=== PATIENT | male | born 1940 | race Caucasian/White ===

== ENCOUNTER 2023-05-18 09:39 | Outpatient (AMB) | payer MEDICARE, OTHER, SELFPAY ==
--- NOTE | 2023-05-18 09:51 | HO.NEPHOV_ITS ---
HPI HPI Comments History of Present Illness Details I had the privilege of seeing Cedric in follow-up of his chronic kidney disease, hypertension and proteinuria. He is still grieving from his 's passing in December. He has not had any medication changes lately. His serum creatinine had been stable. He denies any chest pain, shortness of breath, palpitation, syncope, orthostatic symptoms, nausea, vomiting, diarrhea or urinary symptoms. He does not have any pedal edema. He is compliant with his medications. He avoids nonsteroidal anti-inflammatory medications. He tries to keep up with good hydration. He is followed closely by his primary care physician. [facility] Medical History (Updated 05/18/23 @ 13:10 by Raji Lauren MD) Cardiac pacemaker Hypertension Aortic stenosis Proteinuria Chronic kidney disease, stage 3a Social History Alcohol intake: never Patient Tobacco Use Status: Former Tobacco user Vital Signs 05/18/23 09:52 Height 5 ft 11 in Weight 140 lb 8 oz BMI 19.6 BP 120/50 L Blood Pressure Location Rt brachial Position Sitting Pulse 61 Pulse Source Pulse Oximeter Physical Exam Vital Signs: Last Vital Signs Pulse 61 05/18/23 09:52 BP 120/50 L 05/18/23 09:52 BMI result Body Mass Index 19.6 Const General: comfortable and no acute distress Orientation/consciousness: patient oriented x3 HEENT Head: Yes normocephalic Mouth: Normal oral and palatal mucosa present Eyes EOM: EOMs intact bilaterally Neck Neck: Yes supple Resp Auscultation: clear to auscultation bilaterally Cardio Jugular venous distension: no JVD Rate: regular rate GI Palpation (GI): Soft to palpation Auscultation: normal bowel sounds General: Yes no CVA tenderness Back/Spine/Pelvis Back: no CVA tenderness Skin General skin exam: no rashes or lesions noted Neuro General: patient oriented x3 and moves all extremities Extrem General: Yes no pedal edema Assessment & Plan Assessment & Plan (1) Hypertension: Code(s): I10 - Essential (primary) hypertension Qualifiers: Hypertension type: primary hypertension Qualified Code(s): I10 - Essential (primary) hypertension (2) Proteinuria: Code(s): R80.9 - Proteinuria, unspecified Qualifiers: Proteinuria type: other Qualified Code(s): R80.8 - Other proteinuria (3) Chronic kidney disease, stage 3a: Code(s): N18.31 - Chronic kidney disease, stage 3a Jerome Steele has stage III CKD most likely from vascular disease and age-related loss of renal function. He had history of aortic stenosis and might have been having a low-flow state. His renal functions have been stable. His blood pressure is at goal. He is not on any ALTAGRACIA-inhibitor. He has no orthostatic symptoms. He avoids excess sodium in the diet and keeps up with good hydration. He does not take any nonsteroidal anti-inflammatory medications. No medication refills requested today. I did not make any medication changes today. All his questions and concerns were addressed. Time spent retrieving data, patient encounter and documentation 23 minutes. Follow-up given. Orders: Orders Protein Creatinine Ratio, Ur Today I10 - Essential (primary) hypertension, N18.31 - Chronic kidney disease, stage 3a, R80.9 - Proteinuria, unspecified Electrolytes Today I10 - Essential (primary) hypertension, N18.31 - Chronic kidney disease, stage 3a, R80.9 - Proteinuria, unspecified Blood Urea Nitrogen Today I10 - Essential (primary) hypertension, N18.31 - Chronic kidney disease, stage 3a, R80.9 - Proteinuria, unspecified Creatinine Today I10 - Essential (primary) hypertension, N18.31 - Chronic kidney disease, stage 3a, R80.9 - Proteinuria, unspecified Coding Level of Care Code Est Pt Level 3 (07019) Diagnoses Primary hypertension I10 Hypertension type: primary hypertension Other proteinuria R80.8 Proteinuria type: other Chronic kidney disease, stage 3a N18.31 Results Reviewed Nephrology Results: No Data to Display
[2023-05-18 09:52] VITALS: BP 120/50; PULSE 61; BMI 19.6
== END 2023-05-18 10:34 | disposition home or self-care (01) ==
PROVIDERS: PCP Internal Medicine; Visit Provider Internal Medicine Nephrology
DX: I10 Essential (primary) hypertension (principal); R80.8 Other proteinuria; N18.31 Chronic kidney disease, stage 3a
CPT/HCPCS: 99213

== ENCOUNTER → 2023-05-18 09:39 | Outpatient (BNVA) | payer OTHER, MEDICARE, SELFPAY | PROVIDERS: PCP Internal Medicine; Visit Provider Internal Medicine Nephrology ==

== ENCOUNTER 2023-09-22 09:02 | Outpatient (AMB) | payer MEDICARE, OTHER, SELFPAY ==
[2023-09-22 09:29] VITALS: BP 110/50; PULSE 60; O2SAT 96; BMI 19.3
--- NOTE | 2023-09-22 09:29 | HO.NEPHOV ---
HPI HPI Comments History of Present Illness Details I had the privilege of seeing Cedric in follow-up of his chronic kidney disease, hypertension and proteinuria. He is still grieving from his 's passing . He has not had any medication changes lately. His serum creatinine had been stable. He denies any chest pain, shortness of breath, palpitation, syncope, orthostatic symptoms, nausea, vomiting, diarrhea or urinary symptoms. He does not have any pedal edema. He is compliant with his medications. He avoids nonsteroidal anti-inflammatory medications. He tries to keep up with good hydration. He had been having edema and his Amlodipine has been reduced . He has been initiated on diuretics. He had an USS of his left leg to r/o DVT. He is followed closely by his primary care physician. [facility] Medical History (Updated 05/18/23 @ 13:10 by Raji Lauren MD) Cardiac pacemaker Hypertension Aortic stenosis Proteinuria Chronic kidney disease, stage 3a Social History Alcohol intake: never Patient Tobacco Use Status: Former Tobacco user Vital Signs 09/22/23 09:29 Height 5 ft 11 in Weight 138 lb 6 oz BMI 19.3 BP 110/50 L Blood Pressure Location Lt brachial Position Sitting Pulse 60 Pulse Source Pulse Oximeter Pulse Oximetry (%) 96 Oxygen Delivery Method Room Air Physical Exam Vital Signs: Last Vital Signs Pulse 60 09/22/23 09:29 BP 110/50 L 09/22/23 09:29 Pulse Ox 96 09/22/23 09:29 Oxygen Delivery Method Room Air 09/22/23 09:29 BMI result Body Mass Index 19.3 Const General: comfortable and no acute distress Orientation/consciousness: patient oriented x3 HEENT Head: Yes normocephalic Mouth: Normal oral and palatal mucosa present Eyes EOM: EOMs intact bilaterally Neck Neck: Yes supple Resp Auscultation: clear to auscultation bilaterally Cardio Jugular venous distension: no JVD Rate: regular rate GI Palpation (GI): Soft to palpation Auscultation: normal bowel sounds General: Yes no CVA tenderness Back/Spine/Pelvis Back: no CVA tenderness Skin General skin exam: no rashes or lesions noted Neuro General: patient oriented x3 and moves all extremities Extrem General: Yes edema Assessment & Plan Assessment & Plan (1) Chronic kidney disease, stage 3a: Code(s): N18.31 - Chronic kidney disease, stage 3a (2) Proteinuria: Code(s): R80.9 - Proteinuria, unspecified Qualifiers: Proteinuria type: other Qualified Code(s): R80.8 - Other proteinuria (3) Hypertension: Code(s): I10 - Essential (primary) hypertension Qualifiers: Hypertension type: primary hypertension Qualified Code(s): I10 - Essential (primary) hypertension Jerome Steele has stage III CKD most likely from vascular disease and age-related loss of renal function. He had history of aortic stenosis and might have been having a low-flow state. His renal functions have been stable. His blood pressure is at goal. He is not on any ALTAGRACIA-inhibitor. He has no orthostatic symptoms. He avoids excess sodium in the diet and keeps up with good hydration. He has some edema likely from Amlodipine and the dose has been reduced. He does not take any nonsteroidal anti-inflammatory medications. No medication refills requested today. I did not make any medication changes today. All his questions and concerns were addressed. Orders: Orders Blood Urea Nitrogen Today I10 - Essential (primary) hypertension, N18.31 - Chronic kidney disease, stage 3a, R80.8 - Other proteinuria Electrolytes Today I10 - Essential (primary) hypertension, N18.31 - Chronic kidney disease, stage 3a, R80.8 - Other proteinuria Creatinine Today I10 - Essential (primary) hypertension, N18.31 - Chronic kidney disease, stage 3a, R80.8 - Other proteinuria Coding Level of Care Code Est Pt Level 4 (40004) Diagnoses Chronic kidney disease, stage 3a N18.31 Other proteinuria R80.8 Proteinuria type: other Primary hypertension I10 Hypertension type: primary hypertension Results Reviewed Nephrology Results: No Data to Display
== END 2023-09-22 09:54 | disposition home or self-care (01) ==
PROVIDERS: PCP Internal Medicine; Visit Provider Internal Medicine Nephrology
DX: N18.31 Chronic kidney disease, stage 3a (principal); R80.8 Other proteinuria; I10 Essential (primary) hypertension
CPT/HCPCS: 99214

== ENCOUNTER → 2023-09-22 09:02 | Outpatient (BNVA) | payer OTHER, MEDICARE, SELFPAY | PROVIDERS: PCP Internal Medicine; Visit Provider Internal Medicine Nephrology ==

== ENCOUNTER 2024-03-24 09:31 | Outpatient (AMB) | payer MEDICARE, OTHER, SELFPAY ==
--- NOTE | 2024-03-24 09:33 | HO.NEPHOV_ITS ---
Vital Signs 03/24/24 09:37 Height 5 ft 11 in Weight 136 lb 4 oz BMI 19.0 BP 120/60 Blood Pressure Location Lt brachial Position Sitting Pulse 60 Pulse Source Pulse Oximeter Pulse Oximetry (%) 96 Oxygen Delivery Method Room Air Intake Visit Reasons: 6 Month F/U- Conf Application Penetration Tester Required: No Accompanied by: Self / Same As Patient Allergies No Known Allergies Allergy (Verified 03/24/24 09:39) HPI Comments Details: Cedric was seen in follow-up of his chronic kidney disease, hypertension and proteinuria. He has not had any medication changes lately. His serum creatinine had been stable. He denies any chest pain, shortness of breath, palpitation, syncope, orthostatic symptoms, nausea, vomiting, diarrhea or urinary symptoms. He does not have any pedal edema. He is compliant with his medications. He avoids nonsteroidal anti-inflammatory medications. He tries to keep up with good hydration. He had been having edema and his Amlodipine has been reduced & had been on diuretics. He is followed closely by his primary care physician. [facility] Medical History (Updated 05/18/23 @ 13:10 by Raji Lauren MD) Cardiac pacemaker Hypertension Aortic stenosis Proteinuria Chronic kidney disease, stage 3a Social History Alcohol intake: never Patient Tobacco Use Status: Former Tobacco user Review of Systems Const All systems reviewed & are unremarkable except as noted in HPI and below Physical Exam Vital Signs: Last Vital Signs Pulse 60 03/24/24 09:37 BP 120/60 03/24/24 09:37 Pulse Ox 96 03/24/24 09:37 Oxygen Delivery Method Room Air 03/24/24 09:37 BMI result Body Mass Index 19.0 Const General: comfortable and no acute distress Orientation/consciousness: patient oriented x3 HEENT Head: Yes normocephalic Mouth: Normal oral and palatal mucosa present Eyes EOM: EOMs intact bilaterally Neck Neck: Yes supple Resp Auscultation: clear to auscultation bilaterally Cardio Jugular venous distension: no JVD Rate: regular rate GI Palpation (GI): Soft to palpation Auscultation: normal bowel sounds General: Yes no CVA tenderness Back/Spine/Pelvis Back: no CVA tenderness Skin General skin exam: no rashes or lesions noted Neuro General: patient oriented x3 and moves all extremities Extrem General: Yes no pedal edema Results Reviewed Nephrology Results: No Data to Display Assessment & Plan Assessment & Plan (1) Chronic kidney disease, stage 3a: Code(s): N18.31 - Chronic kidney disease, stage 3a Category: Medical (2) Proteinuria: Code(s): R80.9 - Proteinuria, unspecified Category: Medical Qualifiers: Proteinuria type: other Qualified Code(s): R80.8 - Other proteinuria (3) Hypertension: Code(s): I10 - Essential (primary) hypertension Category: Medical Qualifiers: Hypertension type: primary hypertension Qualified Code(s): I10 - Essential (primary) hypertension Plan Cedric has stage III CKD most likely from vascular disease and age-related loss of renal function. He had history of aortic stenosis and might have been having a low-flow state. His renal functions had been stable. His blood pressure is a t goal. He is not on any ALTAGRACIA-inhibitor. He has no orthostatic symptoms. He avoids excess sodium in the diet and keeps up with good hydration. He has some edema likely from Amlodipine and the dose has been reduced. He does not take any nonsteroidal anti-inflammatory medications. I did not make any medication changes today. All his questions and concerns were addressed Orders: Orders Blood Urea Nitrogen 6 Months I10 - Essential (primary) hypertension, N18.31 - Chronic kidney disease, stage 3a, R80.8 - Other proteinuria Vitamin D 25-OH Total 6 Months I10 - Essential (primary) hypertension, N18.31 - Chronic kidney disease, stage 3a, R80.8 - Other proteinuria Creatinine 6 Months I10 - Essential (primary) hypertension, N18.31 - Chronic kidney disease, stage 3a, R80.8 - Other proteinuria Electrolytes 6 Months I10 - Essential (primary) hypertension, N18.31 - Chronic kidney disease, stage 3a, R80.8 - Other proteinuria Parathyroid Hormone Intact 6 Months I10 - Essential (primary) hypertension, N18.31 - Chronic kidney disease, stage 3a, R80.8 - Other proteinuria Coding Level of Care Code Est Pt Level 4 (20828) Diagnoses Chronic kidney disease, stage 3a N18.31 Other proteinuria R80.8 Proteinuria type: other Primary hypertension I10 Hypertension type: primary hypertension
[2024-03-24 09:37] VITALS: BP 120/60; PULSE 60; O2SAT 96; BMI 19.0
== END 2024-03-24 10:00 | disposition home or self-care (01) ==
PROVIDERS: PCP Internal Medicine; Visit Provider Internal Medicine Nephrology
DX: N18.31 Chronic kidney disease, stage 3a (principal); R80.8 Other proteinuria; I10 Essential (primary) hypertension
CPT/HCPCS: 99214

== ENCOUNTER → 2024-03-24 09:31 | Outpatient (BNVA) | payer OTHER, MEDICARE, SELFPAY | PROVIDERS: PCP Internal Medicine; Visit Provider Internal Medicine Nephrology ==

== ENCOUNTER 2024-09-15 10:07 | Outpatient (REF) | payer MEDICARE, OTHER, SELFPAY ==
--- OUTSIDE RECORDS SUMMARY | 2024-09-15 11:51 | XMS_ITS | Clinical Summary ---
Author Organization [address] [place] [address] [place] [phone] Phone Care Team Providers Care Design Drafter Name Role Phone Brain Mcgarry MD Primary Care Provider [phone] Allergies No known active allergies Medications amLODIPine (NORVASC) 2.5 mg tablet Take 1 Tablet by mouth daily. Active cyanocobalamin (VITAMIN B-12) 1,000 mcg tablet Take 1,000 mcg by mouth daily. Active finasteride (PROSCAR) 5 mg tablet Take 5 mg by mouth daily. Active fluticasone furoate-vilante roL (BREO ELLIPTA) 100-25 mcg/dose inhaler Inhale into the lungs. Active furosemide (LASIX) 20 mg tablet Take 20 mg by mouth daily. Active magnesium aspart,citrate, oxide (Triple Magnesium Complex) 400 mg magnesium capsule Take 1 Capsule by mouth 2 times daily. 12/26/2021 Active potassium chloride 20 mEq tablet extended release Take 20 mEq by mouth daily. Active levothyroxine (SYNTHROID, LEVOTHROID) 50 mcg tablet Take 1 tablet (50 mcg total) by mouth 1 (one) time each day before breakfast. Active carvediloL (COREG) 25 mg tablet Take by mouth 2 (two) times a day with meals. Active fluvastatin (LESCOL) 20 mg capsule Take 1 capsule (20 mg total) by mouth at bedtime. Active Active Problems Problem Noted Date Diagnosed Date Cardiac pacemaker in situ 06/16/2024 Assessment & Plan (06/16/2024 8:48 PM EST): History of syncope 06/16/2024 Assessment & Plan (06/16/2024 8:48 PM EST): Primary hypertension 06/16/2024 Assessment & Plan (06/16/2024 8:48 PM EST): Blood pressure is favorable on current medical therapy; continue amlodipine, carvedilol, and furosemide. No recent metabolic panel on file; we will update this today. Orders: Basic metabolic panel; Future Magnesium; Future Mild tricuspid regurgitation 06/16/2024 Assessment & Plan (06/16/2024 8:48 PM EST): As above. Orders: Transthoracic echocardiogram (TTE) complete with PRN contrast, bubble, strain, and 3D order panel; Future Bifascicular block 06/16/2024 Assessment & Plan (06/16/2024 8:48 PM EST): Stable from previous. Stage 3a chronic kidney disease (CMS/HCC V24, CM S/HCC V28) 06/16/2024 Peripheral edema 06/16/2024 Assessment & Plan (06/16/2024 8:48 PM EST): As above, peripheral edema has become a new issue over the last 1 year. It is very mild on exam today and he is already taking furosemide 20 mg daily. I have strongly encouraged him to continue with conservative measures including low-sodium diet and elevation as able; he is not consistently wearing compression stockings which I did encourage him to do today. Should send him's persist or continue to worsen despite conservative measures, we will consider increasing furosemide. We will obtain echocardiogram today to reevaluate for any underlying heart failure. Orders: Transthoracic echocardiogram (TTE) complete with PRN contrast, bubble, strain, and 3D order panel; Future Hyperlipidemia 05/15/2021 Overview (06/14/2024): Last Assessment & Plan: Last lipid panel 06/29 total cholesterol 136, HDL 72, LDL 53. Continue statin. Assessment & Plan (06/16/2024 8:48 PM EST): Continue fluvastatin. 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 We reviewed signs and symptoms of worsening aortic stenosis and when to be concerned to call our office. He has no symptoms currently. We will continue to monitor. Assessment & Plan (06/16/2024 8:48 PM EST): Overall, the patient presents today without any significant worrisome symptoms; he does have some mild lower extremity edema but no other symptoms concerning for overt heart failure that may be resultant from his underlying valvular disease. We will update an echocardiogram for reevaluation of this and continue to readdress this as needed. Worrisome signs or symptoms for which she should return to care or seek emergent medical attention were reviewed and he verbalizes understanding. Orders: ECG 12 lead Transthoracic echocardiogram (TTE) complete with PRN contrast, bubble, strain, and 3D order panel; Future Sinoatrial node dysfunction (CMS/HCC V24, CMS/ C V28) 11/12/2020 Overview (06/14/2024): Last Assessment & Plan: Device check stable from December 2020. Assessment & Plan (06/16/2024 8:48 PM EST): Status post pacemaker placement; no recurrent syncope since. Continue with in office and remote device checks as per device clinic protocol. Encounters Date Type Department Care Team Description 09/09/2024 3:50 PM EDT Ancillary Procedure [facility] [address] [place] [address] 09/01/2024 7:42 AM EDT - 09/01/2024 11:59 PM EDT Hospital Encounter [facility] [address] [place] [id number] Hypoxemia; Emphysema lung (CMS/HCC V24, CMS/HCC V28) Discharge Disposition: Home or Self Care 07/07/2024 2:25 PM EST Ancillary Procedure [facility] [address] [facility] [address] [place] [address] from Last 3 Months Family History Medical History Relation Name Comments Heart failure Father Relation Name Status Comments Father Social History Tobacco Use Types Packs/Day Years Used Date Smoking Tobacco: Former Smokeless Tobacco: Never Alcohol Use Standard Drinks/Week Comments Yes 0 (1 standard drink = 0.6 oz pur e alcohol) Sex and Gender Information Value Date Recorded Sex Assigned at Not on file Legal Sex Male 3:53 PM EST Gender Identity Not on file Sexual Orientation Not on file Obstetrics History Last Filed Vital Signs Vital Sign Reading Time Taken Comments Blood Pressure 125/60 06/16/2024 10:28 AM EST Pulse 60 06/16/2024 10:28 AM EST Temperature - - Respiratory Rate - - Oxygen Saturation 93% 06/16/2024 10:28 AM EST Inhaled Oxygen Concentration - - Weight 63.5 kg (140 lb) 06/16/2024 10:28 AM EST Height 180.3 cm (5' 11 ) 06/16/2024 10:28 AM EST Body Mass Index 19.53 06/16/2024 10:28 AM EST Plan of Treatment Upcoming Encounters Date Type Department Care Team (Late st Contact Info) Description 12/26/2024 9:30 AM EDT Ancillary Procedure [facility] [address] [facility] [address] [place] [address] Health Maintenance Due Date Last Done Comments DTaP,Tdap,and Td Vaccines (1 - Tdap) 1959 Pneumococcal Vaccine: 50+ Years (2 of 2 - PPSV23) 09/21/2014 07/27/2014 Depression Screening 05/17/2022 Falls Risk Assessment 05/17/2022 Medicare Annual Wellness Visit 05/17/2022 Social Influencers of Health Screening 05/17/2022 Hypertension/CHF/CAD Annual BMP Blood Test 06/16/2024 12/25/2021 Cholesterol Screening (Lipid Panel) 12/25/2026 12/25/2021 RSV Immunization Adult Patients Completed 04/16/2023 Zoster Vaccines Completed 10/09/2023, 07/10, 08/20/2012 COVID-19 Vaccine Completed 02/29/2024, 02/2023, 03/16/2022, Additional history exists Influenza Vaccine Completed 03/07/2024, , 03/11/2022, Additional history exists HIB Vaccines Aged Out No longer eligi ble based on patient's age to complete this topic HPV Vaccines Aged Out No longer eligi ble based on patient's age to complete this topic Hepatitis A Vaccines Aged Out No long er eligible based on patient's age to complete this topic Hepatitis B Vaccines Aged Out No long er eligible based on patient's age to complete this topic IPV Vaccines Aged Out No longer eligi ble based on patient's age to complete this topic MMR Vaccines Aged Out No longer eligi ble based on patient's age to complete this topic Meningococcal ACWY Vaccine Aged Out N o longer eligible based on patient's age to complete this topic Meningococcal B Vaccine Aged Out No l onger eligible based on patient's age to complete this topic RSV Immunization Patients Under 20 months Aged Out No longer eligible based on patient's age to complete this topic Varicella Vaccines Aged Out No longer eligible based on patient's age to complete this topic Medical Devices Implanted Type Area Form Grader Device Identifier Shelf Expiration Date Model / Serial / Lot [facility] 2272 Assurity Mri(Tm) [id number] Implanted: (Quantity not on file) Cardiac Pacemaker [employer]- [employer] 2272 ASSURITY MRI(TM) / [id number] / Procedures Procedure Name Priority Date/Time Associated Diagnosis Comments CARDIAC DEVICE CHECK- REMOTE- MURJ Routine 09/09/2024 3:47 PM EDT HC SPIROMETRY BRONCHODILATION RESPONSIVENESS PRE/POST BRONCHODILATOR ADMINISTRATION Routine 09/01/2024 9:08 AM EDT Hypoxemia Emphysema lung (CMS/HCC V24, CMS/HCC V28) CARDIAC DEVICE CHECK- REMOTE- MURJ Routine 07/07/2024 2:24 PM EST ANNUAL BMP BLOOD TEST Routine 12/25/2021 LIPID PANEL Routine 12/25/2021 from Last 3 Months or Most Recently Relevant to Health Maintenance Results * Cardiac device check - Remote- MURJ (09/09/2024 3:47 PM EDT) Only the most recent of2 resultswithin the time period is included. Date Time Interrogation Session [id number] CV DEVICE CHECK Type Interrogation Session Remote Scheduled CV DEVICE CHECK Implantable Pulse Generator Form Grader [employer] CV DEVICE CHECK Implantable Pulse Generator Type IPG CV DEVICE CHECK Implantable Pulse Generator Model 2272 Assurity MRI(TM) CV DEVICE CHECK Implantable Pulse Generator Serial Number [id number] CV DEVICE CHECK Implantable Pulse Generator Implant Date [id number] CV DEVICE CHECK Battery Remaining Percentage 46.00 CV DEVICE CHECK Battery Remaining Longevity 53.0 CV DEVICE CHECK Battery Voltage 2.960 CV D EVICE CHECK Battery SENIOR FIELD SERVICE ENGINEER Trigger 2.600 CV DEVICE CHECK Battery Status Middle of Service CV DEVICE CHECK Shemar Statistic RA Percent Paced 78.00 CV DEVICE CHECK Shemar Statistic RV Percent Paced 9.20 CV DEVICE CHECK Atrial Tachy Statistic AT/AF [place]ee Percent 0.00 CV DEVICE CHECK Lead Channel Sensing Intrinsic Amplitude 2.100 CV DEVICE CHECK Lead Channel Setting Sensing Sensitivity 0.50 CV DEVICE CHECK Lead Channel Impedance Value 360 CV DEVICE CHECK Lead Channel Pacing Threshold Amplitude 0.875 CV DEVICE CHECK Lead Channel Pacing Threshold Pulse Width 0.5 CV DEVICE CHECK Lead Channel RA Pacing Threshold Date 2024-03-25 CV DEVICE CHECK Lead Channel Setting Pacing Amplitude 1.875 CV DEVICE CHECK Lead Channel Setting Pacing Pulse Width 0.5 CV DEVICE CHECK Lead Channel Sensing Intrinsic Amplitude 9.100 CV DEVICE CHECK Lead Channel Setting Sensing Sensitivity 2.00 CV DEVICE CHECK Lead Channel Impedance Value 410 CV DEVICE CHECK Lead Channel Pacing Threshold Amplitude 1.000 CV DEVICE CHECK Lead Channel Pacing Threshold Pulse Width 0.5 CV DEVICE CHECK Lead Channel RV Pacing Threshold Date 2024-03-25 CV DEVICE CHECK Lead Channel Setting Pacing Amplitude 1.250 CV DEVICE CHECK Lead Channel Setting Pacing Pulse Width 0.5 CV DEVICE CHECK Shemar Setting Mode (NBG Code) DDDR CV DEVICE CHECK Shemar Setting Lower Rate Limit 60 CV DEVICE CHECK Shemar Setting AT Mode Switch Rate 180 CV DEVICE CHECK Shemar Setting Maximum Tracking Rate 130 CV DEVICE CHECK Shemar Setting Maximum Sensor Rate 130 CV DEVICE CHECK Shemar Setting PAV Delay 180 CV DEVICE CHECK Shemar Setting LY Delay 150 CV DEVICE CHECK Date of Service 2024-04-01 CV DEVICE CHECK Anatomical Region Laterality Modality Device Interroga tion 03/25/2024 10:2 1 AM EDT Impressions 04/01/2024 8:12 AM EDT Normal Remote: No Events * Normal Device Function * Alerts or events: None * Battery: Battery is at 46%, 4.42 yrs * Sensing, impedance and thresholds reviewed * Programmed parameters reviewed * Presenting rhythm reviewed * Heart Rate Histograms reviewed * No significant changes noted Narrative Procedure Note Azael Girard MD - 09/09/2024 IMPRESSION: Normal Remote: No Events * Normal Device Function * Alerts or events: None * Battery: Battery is at 46%, 4.42 yrs * Sensing, impedance and thresholds reviewed * Programmed parameters reviewed * Presenting rhythm reviewed * Heart Rate Histograms reviewed * No significant changes noted Azael Girard MD CV IMPLANTABLE CARDIAC DEVICE PROCEDURES Final Result * Pulmonary function testing: Carbon Monoxide Diffusing Capacity, Nitrogen Wash Out, Spirometry with Bronchodilator, Pulmonary Stress Test, 6 min walk (09/01/2024 9:08 AM EDT) Narrative Mariam Christiansen MD - 09/01/2024 5:49 PM EDT FEV1/FVC 43%. FEV1 1.60 at 61% with Z-score -1.93. FVC 104%. No bronchodilator response. TLC 84% (adjusted 82%). DLCO 28% (adjusted 34%) w/ Z-score of -5.31. Moderate obstruction. ??No restriction. ??Severe decrease in diffusion. 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 Result [facility] Essence Hughes MD PFT ORDERABLES Final Result * Annual BMP Blood Test (12/25/2021) [facility] Annual BMP Blood Test Abstracted Result [facility] Oleg Santos MD HEALTH MAINTENANCE Final Result * Lipid panel (12/25/2021) [facility] LDL/HDL Ratio 2 0 - 4 Triglycerides 72 0 - 150 mg/dL Cholesterol 126 0 - 200 mg/dL HDL 64 >=40 mg/dL LDL Cholesterol 48 0 - 100 mg/dL Blood Venous blood specimen / Unknown Historical Provider LAB BLOOD ORDERABLES Sobia l Result from Last 3 Months or Most Recently Relevant to Health Maintenance Insurance MEDICARE [facility] Advance Directives Documents on File Type Date Recorded Patient Cyber Software Engineer Expl anation Health Care Decision (hx) 10/12/2019 AD ROMERO DIRECTIVE Health Care Decision (hx) 10/12/2019 AD ROMERO DIRECTIVE Health Care Decision (hx) 10/12/2019 AD ROMERO DIRECTIVE Health Care Decision (hx) 10/12/2019 AD ROMERO DIRECTIVE Health Care Decision (hx) 10/12/2019 AD ROMEOR DIRECTIVE Health Care Decision (hx) 10/12/2019 AD ROMERO DIRECTIVE Health Care Decision (hx) 10/12/2019 AD ROMERO DIRECTIVE Health Care Decision (hx) 10/12/2019 AD ROMERO DIRECTIVE Health Care Decision (hx) 10/12/2019 AD ROMERO DIRECTIVE Health Care Decision (hx) 10/12/2019 AD ROMERO DIRECTIVE Health Care Decision (hx) 10/12/2019 AD ROMERO DIRECTIVE Health Care Decision (hx) 10/12/2019 AD ROMERO DIRECTIVE Health Care Decision (hx) 10/12/2019 AD ROMERO DIRECTIVE Health Care Decision (hx) 10/12/2019 AD ROMERO DIRECTIVE Health Care Decision (hx) 10/12/2019 AD ROMERO DIRECTIVE Care Teams Design Drafter Relationship Specialty Start Date End Date Brain Mcgarry MD [address] [place] [address] PCP - General Internal Medicine 08/30/24
[2024-09-15 18:12] LABS: Anion Gap 12 (12-20); Blood Urea Nitrogen 17 mg/dL (9-16); Carbon Dioxide 25 mmol/L (22-29); Chloride 108 mmol/L (96-108); Estimated Glomerular Filt Rate 57; Sodium 141 mmol/L (135-145)
[2024-09-15 18:28] LABS: Parathyroid Hormone Intact 242.4 pg/mL (8.7-77.1); Vitamin D 25-OH Total 15.9 ng/mL (>30)
== END 2024-09-15 10:08 | disposition home or self-care (01) ==
LOC: HO.HKASLDS 10:07
PROVIDERS: Visit Provider Internal Medicine Nephrology
DX: N18.31 Chronic kidney disease, stage 3a (principal); R80.8 Other proteinuria; I10 Essential (primary) hypertension
CPT/HCPCS: 36415; 80051; 82306; 82565; 83970; 84520

== ENCOUNTER 2024-09-22 09:31 | Outpatient (AMB) | payer OTHER, MEDICARE, SELFPAY ==
--- NOTE | 2024-09-22 09:39 | HO.NEPHOV_ITS ---
Vital Signs 09/22/24 09:43 Height 5 ft 11 in Weight 140 lb 4 oz BMI 19.6 BP 132/60 Blood Pressure Location Lt brachial Position Sitting Pulse 59 Pulse Source Pulse Oximeter Intake Visit Reasons: 6mon follow up-Conf Staff Nuclear Weapons Officer Required: No Accompanied by: Self / Same As Patient Allergies No Known Allergies Allergy (Verified 09/22/24 09:41) HPI Comments Details: Cedric was seen in follow-up of his chronic kidney disease, hypertension and proteinuria.His serum creatinine had been stable. He denies any chest pain, palpitation, syncope, orthostatic symptoms, nausea, vomiting, diarrhea or urinary symptoms. He has SOBE and feels his is getting worse and may need AVR soon. He has some pedal edema. He is compliant with his medications. He avoids nonsteroidal anti-inflammatory medications. He tries to keep up with good hydration. He had been having edema and his Amlodipine has been reduced & had been on diuretics. He is followed closely by his primary care physician. [facility] Medical History (Updated 09/22/24 @ 10:12 by Raji Lauren MD) Cardiac pacemaker Hypertension Aortic stenosis Proteinuria Chronic kidney disease, stage 3a Social History Alcohol intake: never Patient Tobacco Use Status: Former Tobacco user Review of Systems Const All systems reviewed & are unremarkable except as noted in HPI and below Physical Exam Vital Signs: Last Vital Signs Pulse 59 09/22/24 09:43 BP 132/60 09/22/24 09:43 BMI result Body Mass Index 19.6 Const General: comfortable and no acute distress Orientation/consciousness: patient oriented x3 HEENT Head: Yes normocephalic Mouth: Normal oral and palatal mucosa present Eyes EOM: EOMs intact bilaterally Neck Neck: Yes supple Resp Auscultation: clear to auscultation bilaterally Cardio Jugular venous distension: no JVD Rate: regular rate Heart sounds: Murmur heart sound present GI Palpation (GI): Soft to palpation Auscultation: normal bowel sounds General: Yes no CVA tenderness Back/Spine/Pelvis Back: no CVA tenderness Skin General skin exam: no rashes or lesions noted Neuro General: patient oriented x3 and moves all extremities Extrem General: Yes edema Results Reviewed Nephrology Results: Sodium 141 mmol/L (135-145) 04/10/25 Potassium 4.0 mmol/L (3.3-5.1) 09/15/24 Chloride 108 mmol/L (96-108) 09/15/24 Carbon Dioxide 25 mmol/L (22-29) 09/15/24 BUN 17 mg/dL (9-16) H 09/15/24 Creatinine 1.21 mg/dL (0.5-1.4) 09/15/24 PTH Intact 242.4 pg/mL (8.7-77.1) H 09/15/24 Assessment & Plan Assessment & Plan (1) Chronic kidney disease, stage 3a: Code(s): N18.31 - Chronic kidney disease, stage 3a Category: Medical (2) Proteinuria: Code(s): R80.9 - Proteinuria, unspecified Category: Medical Qualifiers: Proteinuria type: other Qualified Code(s): R80.8 - Other proteinuria (3) Hypertension: Code(s): I10 - Essential (primary) hypertension Category: Medical Qualifiers: Hypertension type: primary hypertension Qualified Code(s): I10 - Essential (primary) hypertension (4) Secondary hyperparathyroidism (of renal origin): Code(s): N25.81 - Secondary hyperparathyroidism of renal origin Category: Medical Plan Cedric has stage III CKD most likely from vascular disease and age-related loss of renal function. He had history of aortic stenosis and might have been having a low-flow state. His renal functions had been stable. His blood pressure is at goal. He is not on any ALTAGRACIA-inhibitor. He has no orthostatic symptoms. He needs an ECHO soon to look at the AV to explore the timing of TAVR. He avoids excess sodium in the diet and keeps up with good hydration. He has some edema likely from Amlodipine and the dose has been reduced. ( needs an ECHO to look at the AV). He does not take any nonsteroidal anti-inflammatory medications. I started him on Vitamin D today. He may need activated vitamin D soon. I did not make any medication changes today. All his questions and concerns were addressed Orders: Orders Vitamin D 25-OH Total 6 Months I10 - Essential (primary) hypertension, N18.31 - Chronic kidney disease, stage 3a, N25.81 - Secondary hyperparathyroidism of renal origin, R80.8 - Other proteinuria Parathyroid Hormone Intact 6 Months I10 - Essential (primary) hypertension, N18.31 - Chronic kidney disease, stage 3a, N25.81 - Secondary hyperparathyroidism of renal origin, R80.8 - Other proteinuria Creatinine 6 Months I10 - Essential (primary) hypertension, N18.31 - Chronic kidney disease, stage 3a, N25.81 - Secondary hyperparathyroidism of renal origin, R80.8 - Other proteinuria Blood Urea Nitrogen 6 Months I10 - Essential (primary) hypertension, N18.31 - Chronic kidney disease, stage 3a, N25.81 - Secondary hyperparathyroidism of renal origin, R80.8 - Other proteinuria Phosphorus 6 Months I10 - Essential (primary) hypertension, N18.31 - Chronic kidney disease, stage 3a, N25.81 - Secondary hyperparathyroidism of renal origin, R80.8 - Other proteinuria Electrolytes 6 Months I10 - Essential (primary) hypertension, N18.31 - Chronic kidney disease, stage 3a, N25.81 - Secondary hyperparathyroidism of renal origin, R80.8 - Other proteinuria Calcium 6 Months I10 - Essential (primary) hypertension, N18.31 - Chronic kidney disease, stage 3a, N25.81 - Secondary hyperparathyroidism of renal origin, R80.8 - Other proteinuria Medications: New cholecalciferol (vitamin D3) 50 mcg PO DAILY 90 caps 3RF Coding Level of Care Code Est Pt Level 4 (76245) Diagnoses Chronic kidney disease, stage 3a N18.31 Other proteinuria R80.8 Proteinuria type: other Primary hypertension I10 Hypertension type: primary hypertension Secondary hyperparathyroidism (of renal origin) N25.81
[2024-09-22 09:43] VITALS: BP 132/60; PULSE 59; BMI 19.6
--- OUTSIDE RECORDS SUMMARY | 2024-09-22 10:53 | XMS_ITS | Clinical Summary ---
Author Organization [facility] Address [address] [address] Phone Care Team Providers Care College Football Coach Name Role Phone Brain Mcgarry MD Primary Care Provider [phone] Allergies No known active allergies Medications finasteride (PROSCAR) 5 MG tablet Take 1 tablet by mouth 1 (one) time each day Active Fluticasone Furoate-Vilanter ol (Breo Ellipta) 100-25 MCG/INH aerosol powder Active furosemide (LASIX) 20 MG tablet Take 1 tablet by mouth 1 (one) time each day Active potassium chloride (KLOR-CON M20) 20 MEQ CR tablet Take 1 tablet by mouth 1 (one) time each day Active simvastatin (ZOCOR) 10 MG tablet Take 1 tablet by mouth 1 (one) time each day Active metoprolol succinate XL (TOPROL XL) 25 MG 24 hr tablet Take 1 tablet by mouth 1 (one) time each day 03/17/2021 Active amLODIPine (NORVASC) 2.5 MG tablet Take 2.5 mg by mouth 1 (one) time each day Active cyanocobalamin (VITAMIN B-12) 1000 MCG tablet Take 1,000 mcg by mouth 1 (one) time each day Active Magnesium 400 MG tablet Take 400 mg by mouth 1 (one) time each day Active Active Problems Problem Noted Date Diagnosed Date Stage 3a chronic kidney disease 10/02/2020 Hypertensive renal disease 10/02/2020 Proteinuria 10/02/2020 Family History Medical History Relation Comments Heart disease Father Hypertension Father Relation Status Comments Father Mother Social History Tobacco Use Types Packs/Day Years Used Date Smoking Tobacco: Former Smokeless Tobacco: Never Tobacco Cessation:Counseling Given: Not Answered Comments:Smoking History Info:Every day Alcohol Use Standard Drinks/Week Comments Yes 0 (1 standard drink = 0.6 oz pure alcohol) Alcoholic Drinks/day: Occasional social drink Sex and Gender Information Value Date Recorded Sex Assigned at Not on file Legal Sex Male 5:12 PM EST Gender Identity Not on file Sexual Orientation Not on file Last Filed Vital Signs Vital Sign Reading Time Taken Comments Blood Pressure 130/50 11/18/2022 2:45 PM EDT Pulse 64 05/13/2022 2:10 PM EST Temperature - - Respiratory Rate - - Oxygen Saturation 96% 04/09/2021 1:24 PM EDT Inhaled Oxygen Concentration - - Weight 61.7 kg (136 lb) 11/18/2022 2:45 PM EDT Height 177.8 cm (5' 10 ) 10/24/2019 12:00 PM EDT Body Mass Index 19.51 10/24/2019 12:00 PM EDT Plan of Treatment Health Maintenance Due Date Last Done Comments Pneumococcal Vaccine: 50+ Ye ars (1 of 2 - PCV) 1959 Influenza Vaccine (Season Ended) 2025 Hepatitis B Vaccine Aged Out No longe r eligible based on patient's age to complete this topic Insurance [facility] Medicare [facility] Medicare Care Teams College Football Coach Relationship Specialty Start Date End Date Brain Mcgarry MD [address] [place] [address] PCP - General 06/18/20
--- OUTSIDE RECORDS SUMMARY | 2024-09-22 10:53 | XMS_ITS | Clinical Summary ---
Author Organization [address] [place] [address] [place] [phone] Phone Care Team Providers Care Instructional Coach Name Role Phone Brain Mcgarry MD Primary Care Provider [phone] Allergies No known active allergies Medications amLODIPine [...] Description 09/09/2024 3:50 PM EDT Ancillary Procedure [facility] Cardiology [facility] [address] [place] [address] 09/01/2024 7:42 AM EDT - 09/01/2024 11:59 PM EDT Hospital Encounter [facility] Pulmonary [address] [place] [phone] Hypoxemia; Emphysema lung (CMS/HCC V24, CMS/HCC V28) Discharge Disposition: Home or Self Care 07/07/2024 2:25 PM EST Ancillary Procedure [facility] [address] [facility] [address] [place] [address] from Last 3 Months Family History Medical [...] Description 12/26/2024 9:30 AM EDT Ancillary Procedure [facility] [address] [facility] [address] [place] [address] Health Maintenance Due Date Last [...] this topic Medical Devices Implanted Type Area Whittling Room Operator Device Identifier Shelf Expiration Date Model / Serial / Lot [facility] 2272 Assurity Mri(Tm) [id number] Implanted: (Quantity not on file) Cardiac Pacemaker Mark43- [employer] 2272 ASSURITY MRI(TM) / [id number] / Procedures Procedure Name Priority Date/Time Associated [...] period is included. Date Time Interrogation Session [id number] CV DEVICE CHECK Type Interrogation Session Remote Scheduled CV DEVICE CHECK Implantable Pulse Generator Whittling Room Operator [employer] CV DEVICE CHECK Implantable Pulse Generator Type IPG CV DEVICE CHECK Implantable Pulse Generator Model 2272 Assurity MRI(TM) CV DEVICE CHECK Implantable Pulse Generator Serial Number [id number] CV DEVICE CHECK Implantable Pulse Generator Implant Date 20180204 CV DEVICE CHECK Battery Remaining Percentage 46.00 CV DEVICE CHECK Battery Remaining Longevity 53.0 CV DEVICE CHECK Battery Voltage 2.960 CV D EVICE CHECK Battery PAIN MANAGEMENT PHYSICIAN Trigger 2.600 CV DEVICE CHECK Battery Status Middle of Service CV DEVICE CHECK Shemar Statistic RA Percent Paced 78.00 CV DEVICE CHECK Shemar Statistic RV Percent Paced 9.20 CV DEVICE CHECK Atrial Tachy Statistic AT/AF [place] Percent 0.00 CV DEVICE CHECK Lead Channel [...] obstructive lung disease with emphysematous component. Result [facility] Essence Hughes MD PFT ORDERABLES Final Result * Annual BMP Blood Test (12/25/2021) [facility] Annual BMP Blood Test Abstracted Result [facility] Oleg Santos MD HEALTH MAINTENANCE Final Result * Lipid panel (12/25/2021) [facility] LDL/HDL Ratio 2 0 - 4 Triglycerides 72 0 - 150 mg/dL Cholesterol 126 0 - 200 mg/dL HDL 64 >=40 mg/dL LDL Cholesterol 48 0 - 100 mg/dL Blood Venous blood specimen / Unknown Historical Provider LAB BLOOD ORDERABLES Sobia l Result from Last 3 Months or Most Recently Relevant to Health Maintenance Insurance MEDICARE [facility] Advance Directives Documents on File Type Date Recorded Patient Wolf Hunter Expl anation Health Care Decision (hx) 10/12/2019 [...] (hx) 10/12/2019 AD ROMERO DIRECTIVE Care Teams Instructional Coach Relationship Specialty Start Date End Date Brain Mcgarry MD [address] [place] [address] PCP - General Internal Medicine 08/30/24
== END 2024-09-22 10:17 | disposition home or self-care (01) ==
LOC: HO.HKAS 09:31
PROVIDERS: PCP Internal Medicine; Visit Provider Internal Medicine Nephrology
DX: N18.31 Chronic kidney disease, stage 3a (principal); R80.8 Other proteinuria; I10 Essential (primary) hypertension; N25.81 Secondary hyperparathyroidism of renal origin
CPT/HCPCS: 99214

== ENCOUNTER 2025-03-23 09:28 | Outpatient (AMB) | payer OTHER, MEDICARE, SELFPAY ==
--- OUTSIDE RECORDS SUMMARY | 2025-03-21 11:30 | XMS_ITS | Encounter Summary ---
Author Organization [facility] [place] [address] Care Team Providers Care Kennel Keeper Name Role Phone Brain Mcgarry MD Primary Care Provider + [phone] Encounter Details Date Type Department Care Team ([facility] st Contact Info) Description 03/21/2025 11:30 AM EDT Ancillary Procedure [facility] - [facility] [address] [facility] [address] [place] [address] Arrived Social History Tobacco Use Types Packs/Day Years Used Date Smoking Tobacco: Former Passive Smoke Exposure: Past Smokeless Tobacco: Never Alcohol Use Standard Drinks/Week Comments Yes 0 (1 standard drink = 0.6 oz pur e alcohol) Health Literacy Answer Date Recorded How often do you need to hav e someone help you when you read instructions, pamphlets, or other written material from your doctor or pharmacy? Never 03/01/2025 Caregiver: How often do you need to have someone help you when you read instructions, pamphlets, or other written material from your doctor or pharmacy? Not on file 03/01/2025 Transportation Answer Date Recorded Has the lack of transportati on kept you from meetings, work, or from getting things needed for daily living? No Has the lack of transportati on kept you from medical appointments or from getting medications? No 03/01/2025 Social Isolation Answer Date Recorded How often do you feel lonely or isolated from those around you? Sometimes 03/01/2025 Food Risk Answer Date Recorded Within the past 12 months we worried whether our food would run out before we got money to buy more. Never true 03/02/2025 Within the past 12 months th e food we bought just didn't last and we didn't have money to get more. Never true 03/02/2025 Interpersonal Safety Answer Date Record ed Physical Abuse Unrecognized value 02/28/2025 Verbal Abuse Unrecognized value 02/28/2025 Sex and Gender Information Value Date Recorded Sex Assigned at Male 02/28/2025 9:41 AM EDT Legal Sex Male 3:53 PM EST Gender Identity Male 02/28/2025 9:41 AM EDT Sexual Orientation Choose not to disclose 2024 9:41 AM EDT documented as of this encounter Plan of Treatment Upcoming Encounters Date Type Department Care Team (Late st Contact Info) Description 04/03/2025 11:30 AM EDT Office Visit [facility] Cardiology [facility] [address] [place] [phone] Lucas Kraus MD [address] [place] [address] [address] [place] [phone] 05/02/2025 9:30 AM EST Office Visit Pulmonology - [place] [address] [place] [phone] Essence Hughes MD [address] [place] [phone] 12/26/2025 9:30 AM EDT Ancillary Procedure [facility] [address] [place] [address] documented as of this encounter Procedures Procedure Name Priority Date/Time Associated Diagnosis Comments CARDIAC DEVICE CHECK- REMOTE- MURJ Routine 03/21/2025 11:26 AM EDT documented in this encounter Results * Cardiac device check - Remote- MURJ (03/21/2025 11:26 AM EDT) Date Time Interrogation Session [id number] CV DEVICE CHECK Type Interrogation Session Remote Scheduled CV DEVICE CHECK Implantable Pulse Generator Litigation Counsel [employer] CV DEVICE CHECK Implantable Pulse Generator Type IPG CV DEVICE CHECK Implantable Pulse Generator Model 2272 Assurity MRI(TM) CV DEVICE CHECK Implantable Pulse Generator Serial Number [id number] CV DEVICE CHECK Implantable Pulse Generator Implant Date 20180204 CV DEVICE CHECK Battery Remaining Percentage 37.00 CV DEVICE CHECK Battery Remaining Longevity 44.0 CV DEVICE CHECK Battery Voltage 2.960 CV D EVICE CHECK Battery CHIEF GROWTH OFFICER Trigger 2.600 CV DEVICE CHECK Battery Status Middle of Service CV DEVICE CHECK Shemar Statistic RA Percent Paced 68.00 CV DEVICE CHECK Shemar Statistic RV Percent Paced 3.90 CV DEVICE CHECK Atrial Tachy Statistic AT/AF [place] Percent 1.00 CV DEVICE CHECK Lead Channel Sensing Intrinsic Amplitude 2.600 CV DEVICE CHECK Lead Channel Setting Sensing Sensitivity 0.50 CV DEVICE CHECK Lead Channel Impedance Value 390 CV DEVICE CHECK Lead Channel Pacing Threshold Amplitude 0.750 CV DEVICE CHECK Lead Channel Pacing Threshold Pulse Width 0.5 CV DEVICE CHECK Lead Channel RA Pacing Threshold Date 2025-03-13 CV DEVICE CHECK Lead Channel Setting Pacing Amplitude 1.750 CV DEVICE CHECK Lead Channel Setting Pacing Pulse Width 0.5 CV DEVICE CHECK Lead Channel Sensing Intrinsic Amplitude 9.500 CV DEVICE CHECK Lead Channel Setting Sensing Sensitivity 2.00 CV DEVICE CHECK Lead Channel Impedance Value 460 CV DEVICE CHECK Lead Channel Pacing Threshold Amplitude 0.750 CV DEVICE CHECK Lead Channel Pacing Threshold Pulse Width 0.5 CV DEVICE CHECK Lead Channel RV Pacing Threshold Date 2025-03-13 CV DEVICE CHECK Lead Channel Setting Pacing Amplitude 1.000 CV DEVICE CHECK Lead Channel Setting Pacing [...] 150 CV DEVICE CHECK Date of Service 2025-04-06 CV DEVICE CHECK Anatomical Region Laterality Modality Device Interroga tion 03/13/2025 11:0 6 PM EDT Impressions 03/21/2025 11:23 AM EDT Non-sustained Ventricular Tachycardia * Stored EGMs are consistent with or suggestive of Non-sustained VT * Total episodes: 1 -52 beats Normal Remote: With Events * Normal Device Function * Events or Alerts: NSVT * Battery: Battery is at 37%, 3.67 yrs * Sensing, impedance and thresholds reviewed * Programmed parameters reviewed * Presenting rhythm reviewed * Heart Rate Histograms reviewed Additional Notes: Patient admitted to [facility] at time for TAVR Narrative Procedure Note Nessa Harmon PA - 03/21/2025 IMPRESSION: Non-sustained Ventricular Tachycardia * Stored EGMs are consistent with or suggestive of Non-sustained VT * Total episodes: 1 -52 beats Normal Remote: With Events * Normal Device Function * Events or Alerts: NSVT * Battery: Battery is at 37%, 3.67 yrs * Sensing, impedance and thresholds reviewed * Programmed parameters reviewed * Presenting rhythm reviewed * Heart Rate Histograms reviewed Additional Notes: Patient admitted to [facility] at time for TAVR Nessa POSEY CV IMPLANTABLE CARDIAC DEVICE DE OCEDURES Final Result documented in this encounter Visit Diagnoses Not on filedocumented in this encounter Additional Health Concerns Assessment Noted Time PHQ-9 Depression Total Score: 0 03/01/20 7:39 AM EDT documented as of this encounter Care Teams Kennel Keeper Relationship Specialty Start Date End Date Brain Mcgarry MD [address] [place] [id number] PCP - General Internal Medicine 08/30/24 documented as of this encounter
--- OUTSIDE RECORDS SUMMARY | 2025-03-22 15:00 | XMS_ITS | Encounter Summary ---
Author Organization [facility] Address [address] [place] [address] Care Team Providers Care Coil Placer Name Role Phone Brain Mcgarry MD Primary Care Provider + [phone] Reason for Visit * Imaging (Routine) - Authorized Specialty Diagnoses / Procedures Referred By Contac t Referred To Contact Cardiology Diagnoses Nonrheumatic aortic valve stenosis with insufficiency Procedures Transthoracic echocardiogram (TTE) complete with PRN contrast, bubble, strain, and 3D order panel NE TTE W 2D IMAGE COMPLETE W DOPPLER ECHO & COLOR FLOW DOPPLER ECHO NE EVELYN 2D COMPLETE W/CONTRAST OR W & WO CONTRAST WITH DOPPLER Lucas Kraus MD [address] [place] [address] [address] [place] [address] Phone: tel: fax: [facility] Referral ID Status Reason Start Date Expiration Date V isits Requested Visits Authorized [id number] Authorized 01/11/2025 01/11/2026 1 1 Encounter Details Date Type Department Care Team (Latest Contact Info) Description 03/22/2025 3:00 PM EDT Ancillary Procedure [facility] - [address] [place] [address] Nonrheumatic aortic valve stenosis with insufficiency Social History Tobacco Use Types Packs/Day Years [...] AM EDT documented as of this encounter Last Filed Vital Signs Vital Sign Reading Time Taken Comments Blood Pressure 119/60 03/22/2025 3:39 PM EDT Pulse - - Temperature - - Respiratory Rate - - Oxygen Saturation - - Inhaled Oxygen Concentration - - Weight 57.6 kg (127 lb) 03/22/2025 3:39 PM EDT Height 180.3 cm (5' 11 ) 03/22/2025 3:39 PM EDT Body Mass Index 17.71 03/22/2025 3:39 PM EDT documented in this encounter Plan of Treatment Upcoming Encounters Date Type Department Care Team (Late st Contact Info) Description 04/03/2025 11:30 AM EDT Office Visit [facility] Associates [facility] [address] [place] [address] [place] [address] Lucas Kraus MD [address] [place] [address] [address] [place] [address] 05/02/2025 9:30 AM EST Office Visit Pulmonology - [place] [address] [place] [phone] Essence Hughes MD [address] [place] [phone] 12/26/2025 9:30 AM EDT Ancillary Procedure [facility] - [address] [place] [phone] Pending Results Name Type Priority Associated Diagnoses Date /Time Transthoracic echocardiogram (TTE) complete with PRN contrast, bubble, strain, and 3D order panel Echocardiography Routine Nonrheumatic aortic valve stenosis with insufficiency 03/22/2025 3:39 PM EDT documented as of this encounter Visit Diagnoses Diagnosis Nonrheumatic aortic valve stenosis with insufficiency Encounter for adjustment or management of cardiac device documented in this encounter Additional Health Concerns Assessment Noted Time PHQ-9 Depression Total Score: 0 03/01/20 7:39 AM EDT documented as of this encounter Care Teams Coil Placer Relationship Specialty Start Date End Date Brain Mcgarry MD [address] [place] [id number] PCP - General Internal Medicine 08/30/24 documented as of this encounter
--- NOTE | 2025-03-23 09:35 | HO.NEPHOV ---
Vital Signs 03/23/25 09:39 Height 5 ft 11 in Weight 131 lb 6 oz BMI 18.3 BP 112/60 Blood Pressure Location Lt brachial Position Sitting Pulse 82 Pulse Source Pulse Oximeter Pulse Oximetry (%) 93 Oxygen Delivery Method Room Air Intake Visit Reasons: 6 Months-[facility] White Sugar Pan Tank Operator Required: No Accompanied by: Self / Same As Patient Allergies No Known Allergies Allergy (Verified 03/23/25 09:39) HPI Comments Details: Cedric was seen in follow-up of his chronic kidney disease, hypertension and proteinuria.His serum creatinine is close to baseline now. He recently had TAVR. He denies any chest pain, palpitation, syncope, orthostatic symptoms, nausea, vomiting, diarrhea or urinary symptoms. He has some pedal edema. He is compliant with his medications. He avoids nonsteroidal anti-inflammatory medications. He tries to keep up with good hydration. He had been on diuretics. [facility] Medical History (Updated 09/22/24 @ 10:12 by Raji Lauren MD) Cardiac pacemaker Hypertension Aortic stenosis Proteinuria Chronic kidney disease, stage 3a Social History Alcohol intake: never Patient Tobacco Use Status: Former Tobacco user Review of Systems Const All systems reviewed & are unremarkable except as noted in HPI and below Physical Exam Vital Signs: Last Vital Signs Pulse 82 03/23/25 09:39 BP 112/60 03/23/25 09:39 Pulse Ox 93 03/23/25 09:39 Oxygen Delivery Method Room Air 03/23/25 09:39 BMI result Body Mass Index 18.3 Const General: comfortable and no acute distress Orientation/consciousness: patient oriented x3 HEENT Head: Yes normocephalic Mouth: Normal oral and palatal mucosa present Eyes EOM: EOMs intact bilaterally Neck Neck: Yes supple Resp Auscultation: clear to auscultation bilaterally Cardio Jugular venous distension: no JVD Rate: regular rate GI Palpation (GI): Soft to palpation Auscultation: normal bowel sounds General: Yes no CVA tenderness Back/Spine/Pelvis Back: no CVA tenderness Skin General skin exam: no rashes or lesions noted Neuro General: patient oriented x3 and moves all extremities Assessment & Plan Assessment & Plan (1) Chronic kidney disease, stage 3a: Code(s): N18.31 - Chronic kidney disease, stage 3a Category: Medical (2) Proteinuria: Code(s): R80.9 - Proteinuria, unspecified Category: Medical Qualifiers: Proteinuria type: other Qualified Code(s): R80.8 - Other proteinuria (3) Secondary hyperparathyroidism (of renal origin): Code(s): N25.81 - Secondary hyperparathyroidism of renal origin Category: Medical (4) Hypertension: Code(s): I10 - Essential (primary) hypertension Category: Medical Qualifiers: Hypertension type: primary hypertension Qualified Code(s): I10 - Essential (primary) hypertension Plan Cedric has stage III CKD most likely from vascular disease and age-related loss of renal function. He had history of aortic stenosis and had been having a low-flow state. He is S/P TAVR. His blood pressure is at goal. He is not on any ALTAGRACIA-inhibitor. He has no orthostatic symptoms. He avoids excess sodium in the diet and keeps up with good hydration. He has some edema likely from Amlodipine and the dose has been reduced.. He does not take any nonsteroidal anti-inflammatory medications. He is on Vitamin D . He may need activated vitamin D soon. I did not make any medication changes today. All his questions and concerns were addressed Orders: Orders Parathyroid Hormone Intact 3 Months I10 - Essential (primary) hypertension, N18.31 - Chronic kidney disease, stage 3a, N25.81 - Secondary hyperparathyroidism of renal origin, R80.8 - Other proteinuria Vitamin D 25-OH Total 3 Months I10 - Essential (primary) hypertension, N18.31 - Chronic kidney disease, stage 3a, N25.81 - Secondary hyperparathyroidism of renal origin, R80.8 - Other proteinuria Blood Urea Nitrogen 3 Months I10 - Essential (primary) hypertension, N18.31 - Chronic kidney disease, stage 3a, N25.81 - Secondary hyperparathyroidism of renal origin, R80.8 - Other proteinuria Complete Blood Count Auto Diff 3 Months I10 - Essential (primary) hypertension, N18.31 - Chronic kidney disease, stage 3a, N25.81 - Secondary hyperparathyroidism of renal origin, R80.8 - Other proteinuria Electrolytes 3 Months I10 - Essential (primary) hypertension, N18.31 - Chronic kidney disease, stage 3a, N25.81 - Secondary hyperparathyroidism of renal origin, R80.8 - Other proteinuria Calcium 3 Months I10 - Essential (primary) hypertension, N18.31 - Chronic kidney disease, stage 3a, N25.81 - Secondary hyperparathyroidism of renal origin, R80.8 - Other proteinuria Creatinine 3 Months I10 - Essential (primary) hypertension, N18.31 - Chronic kidney disease, stage 3a, N25.81 - Secondary hyperparathyroidism of renal origin, R80.8 - Other proteinuria Coding Level of Care Code Est Pt Level 4 (07674) Diagnoses Chronic kidney disease, stage 3a N18.31 Other proteinuria R80.8 Proteinuria type: other Secondary hyperparathyroidism (of renal origin) N25.81 Primary hypertension I10 Hypertension type: primary hypertension
[2025-03-23 09:39] VITALS: BP 112/60; PULSE 82; O2SAT 93; BMI 18.3
--- OUTSIDE RECORDS SUMMARY | 2025-03-23 10:50 | XMS_ITS | Clinical Summary ---
Author Organization [address] [place] [address] Address [address] [place] [address] Phone Care Team Providers Care Pelletizer Name Role Phone Brain Mcgarry MD Primary Care Provider + [phone] Allergies No known active allergies Medications amLODIPine (NORVASC) 2.5 mg tablet Take 1 tablet (2.5 mg total) by mouth 1 (one) time each day. Active cyanocobalamin (VITAMIN B-12) 1,000 mcg tablet Take 1 tablet (1,000 mcg total) by mouth 1 (one) time each day. Active finasteride (PROSCAR) 5 mg tablet Take 1 tablet (5 mg total) by mouth 1 (one) time each day. Active furosemide (LASIX) 20 mg tablet Take 1 tablet (20 mg total) by mouth 1 (one) time each day. Active potassium chloride 20 mEq tablet extended release Take by mouth 1 (one) time each day. Dose not specified on [facility] record Active levothyroxine (SYNTHROID, LEVOTHROID) 50 mcg tablet Take 1 tablet (50 mcg total) by mouth 1 (one) time each day before breakfast. Active carvediloL (COREG) 25 mg tablet Take 1 tablet (25 mg total) by mouth 2 (two) times a day with meals. [facility] record States due tonight Active fluvastatin (LESCOL) 20 mg capsule Take 1 capsule (20 mg total) by mouth at bedtime. Active cholecalcifero l (Vitamin D3) 50 mcg (2,000 unit) tablet Take 1 tablet (2,000 Units total) by mouth 1 (one) time each day. Active Incruse Ellipta 62.5 mcg/actuation inhalation Inhale by mouth 1 (one) time each day. Dose not specified on [facility] record 07/27/19 25 Active aspirin 81 mg EC tablet Take 1 tablet (81 mg total) by mouth 1 (one) time each day. 90 each 3 11/30/19 25 026 Active magnesium oxide (MAG-OX) 400 mg magnesium tablet Take 1 tablet (400 mg total) by mouth 1 (one) time each day. Active fluticasone/vi lanterol (BREO ELLIPTA INHL) Inhale by mouth. Dose not specified- incruse ellipta also ordered on d/c med list Active tamsulosin (FLOMAX) 0.4 mg 24 hr capsule Take 1 capsule (0.4 mg total) by mouth 1 (one) time each day with breakfast. Capsules should be taken 30 minutes following the same meal each day. Active ipratropium-al buteroL (DUONEB) 0.5-2.5 mg/3 mL nebulizer solution Take 3 mL by nebulization 4 (four) times a day. 9-1-5-9 schedule Active fluticasone furoate-vilant Yan (BREO ELLIPTA) 100-25 mcg/dose inhaler Inhale into the lungs. 025 Discontinued magnesium aspart,citrate ,oxide (Triple Magnesium Complex) 400 mg magnesium capsule Take 1 capsule by mouth 1 (one) time each day. 12/27/19 22 025 Discontinued simvastatin (ZOCOR) 10 mg tablet Take 1 tablet (10 mg total) by mouth 1 (one) time each day. 02/04/20 18 025 Discontinued doxycycline (VIBRAMYCIN) 100 mg capsule Take 1 capsule (100 mg total) by mouth 2 (two) times a day. for 5 days 07/18/19 25 025 Discontinued triamcinolone (KENALOG) 0.1 % cream Apply topically. 05/27/20 23 025 Discontinued Active Problems Problem Noted Date Diagnosed Date Status post aortic valve replacement 02/28/2025 Coronary artery disease invo lving e[place] coronary artery of e[place] heart without angina pectoris 11/28/2024 Overview (11/28/2024): Pre-TAVR cardiac catheterization 11/2024 showed left main distal subsection 20%, proximal LAD distal subsection 40%, left circumflex distal subsection 40%, mid RCA proximal subsection 100% stenosis (HARDWARE DESIGN ENGINEER) and distal 90% stenosis with severe aortic stenosis Assessment & Plan (11/28/2024 11:07 AM EDT): The patient does not have any anginal symptoms to his current MET workload. He has a HARDWARE DESIGN ENGINEER of his RCA, but otherwise no hemodynamically significant coronary artery disease. He is currently undergoing TAVR evaluation. Continue calcium channel esau and beta-esau at current doses. We will call the patient to ensure that he is taking an aspirin as I have noticed after his visit today that he is not on his medicine list. Finding of above normal blood pressure 5 Neoplasm of uncertain behavior of skin 5 Cardiac pacemaker in situ 06/16/2024 Assessment & Plan (06/16/2024 8:48 PM EST): History of syncope 06/16/2024 Assessment & Plan (06/16/2024 8:48 PM EST): Primary hypertension 06/16/2024 Assessment & Plan (11/28/2024 11:05 AM EDT): Blood pressure well-controlled on current calcium channel esau, beta-esau and diuretic. Continue Assessment & Plan (09/30/2024 6:47 AM EDT): Patient's blood pressure is somewhat robust. For now, continue his calcium channel esau, beta-esau and diuretic. Follow on stress echocardiogram. 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 Continue Assessment & Plan (09/30/2024 6:48 AM EDT): Well-controlled lipid profile without known CAD on current dose statin. Continue Assessment & Plan (06/16/2024 8:48 PM EST): Continue fluvastatin. 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 They indicate that this is unchanged when compared to echocardiogram 05/2023. - Severe aortic stenosis by cath 11/2024 Assessment & Plan (11/28/2024 11:05 AM EDT): The patient's aortic valve stenosis is determined to be severe by exercise stress echocardiogram and cardiac catheterization. He continues with the TAVR workup with Dr. Kraus. He is scheduled to have his TAVR CTs tomorrow, and from there, his case will be discussed with the heart team. He will be contacted by the TAVR coordinator to arrange his TAVR. At this time, he appears euvolemic. His lower extremity edema may be related to some mild heart failure versus his calcium channel esau. We will follow this postprocedure. Otherwise, he does not have any adventitious lung sounds or JVD to suggest extra volume. He is currently able to complete all of his typical activities without any symptoms. He will notify me immediately of any changes in his current condition or seek emergency medical care if needed. 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 However, he reports progressive breathlessness. He does not appear hypervolemic. As such, we will obtain an exercise stress echocardiogram (see below) Assessment & Plan (06/16/2024 8:48 PM EST): [...] panel; Future Sinoatrial node dysfunction (CMS/HCC V24, CMS/HC C V28) 11/12/2020 Overview (09/30/2024): [employer] dual chamber pacemaker Assessment & Plan (11/28/2024 11:05 AM EDT): Patient's device is normally functioning in office and via remote monitoring. Continue as per protocol Assessment & Plan (09/30/2024 6:47 AM EDT): Patient's device is normally functioning on an office and remote checks. Continue to follow as per device clinic protocol Assessment & Plan (06/16/2024 8:48 PM EST): Status post pacemaker placement; no recurrent syncope since. Continue with in office and remote device checks as per device clinic protocol. Hypertensive renal disease 10/02/2020 Proteinuria 10/02/2020 Encounters Date Type Department Care Team Description 03/22/2025 3:00 PM EDT Ancillary Procedure [facility] Cardiology [facility] [address] [place] [address] Nonrheumatic aortic valve stenosis with insufficiency 03/21/2025 11:30 AM EDT Ancillary Procedure [facility] Cardiology [facility] [address] [place] [address] Arrived 03/06/2025 Plan of Care Documentation [facility] [address] [place] [address] 02/28/2025 11:52 AM EDT - 03/08/2025 1:15 PM EDT Hospital Encounter [facility] [address] [place] [address] Zuleima Fiore DO Status post aortic valve replacement [Z95.2] (Primary Dx) Discharge Disposition: Home-Health Care Svc 01/30/2025 9:00 AM EDT Office Visit Pulmonology - [place] [address] [place] [phone] Essence Hughes MD Centrilobular emphysema ([facility] V24, [facility] V28) (Primary Dx); Severe aortic stenosis; Hypoxemia; Weight loss, unintentional 01/12/2025 Telephone [facility] Cardiology [facility] [address] [place] [address] Lucas Kraus MD 01/11/2025 Telephone [facility] [address] [place] [address] Lucas Kraus MD 12/30/2024 5:20 PM EDT Ancillary Procedure [facility] [address] [place] [address] 12/27/2024 Telephone [facility] [address] [place] [address] Megan Ho NP 12/26/2024 9:30 AM EDT Ancillary Procedure [facility] [address] [place] [address] Encounter for adjustment or management of cardiac device 12/22/2024 12:00 PM EDT Ancillary Procedure [facility] [address] [place] [address] History of syncope; Occlusion and stenosis of bilateral carotid arteries from Last 3 Months Medical History Medical History Date Comments HTN (hypertension) HLD (hyperlipidemia) CHF (congestive heart failure) ([facility] V24, [facility] V28) COPD (chronic obstructive pulmonary disease) (CM S/HCC V24, [facility] V28) CKD (chronic kidney disease), stage III ([facility] V24, [facility] V28) Family History Medical History Relation Name Comments Heart failure Father Relation Name Status Comments Father Social History Tobacco Use Types Packs/Day Years Used Date Smoking Tobacco: Former Passive Smoke Exposure: Past Smokeless Tobacco: Never Tobacco Cessation:Counseling Given: Not Answered Alcohol Use Standard Drinks/Week Comments Yes 0 [...] not to disclose 2024 9:41 AM EDT Obstetrics History Last Filed Vital Signs Vital Sign Reading Time Taken Comments Blood Pressure 119/60 03/22/2025 3:39 PM EDT Pulse 87 03/08/2025 12:05 PM EDT Temperature 37.4 C (99.4 F) 03/08/2025 12:05 PM EDT Respiratory Rate 18 03/08/2025 12:05 PM EDT Oxygen Saturation 94% 03/08/2025 12:05 PM EDT Inhaled Oxygen Concentration - - Weight 57.6 kg (127 lb) 03/22/2025 3:39 PM EDT Height 180.3 cm (5' 11 ) 03/22/2025 3:39 PM EDT Body Mass Index 17.71 03/22/2025 3:39 PM EDT Plan of Treatment Upcoming Encounters Date Type Department Care Team (Late st Contact Info) Description 04/03/2025 11:30 AM EDT Office Visit [facility] Cardiology [facility] [address] [place] [phone] Lucas Kraus MD [address] [place] [address] [address] [place] [phone] 05/02/2025 9:30 AM EST Office Visit Pulmonology - [place] [address] [place] [address] Essence Hughes MD [address] [place] [phone] 12/26/2025 9:30 AM EDT Ancillary Procedure [facility] [address] [place] [phone] Health Maintenance Due Date Last Done Comments DTaP,Tdap,and Td Vaccines (1 - Tdap) 1959 Pneumococcal Vaccine: 50+ Years (2 of 2 - PPSV23, PCV20, or PCV21) 09/21/2014 07/27/2014 Medicare Annual Wellness Visit 05/17/2022 COVID-19 Vaccine (7 - Pfizer risk 2023- season) 2025 02/29/2024, 03/16/2023, 03/16/2022, Additional history exists Social Influencers of Health Screening 03/02/2026 03/02/2025 Falls Risk Assessment 03/08/2026 03/08/2025 Hypertension/CHF/CAD Annual BMP Blood Test 03/08/2026 03/08/2025, 03/06/2025, 03/01/2025, Additional history exists Cholesterol Screening (Lipid Panel) 12/25/2026 12/25/2021 RSV Immunization Adult Patients Completed 04/16/2023 Zoster Vaccines Completed 10/09/2023, 07/10, 08/20/2012 Depression Screening Completed 03/01/2025 Influenza Vaccine Completed 03/10/2025, , 03/16/2023, Additional history exists HIB Vaccines Aged Out [...] this topic Medical Devices Implanted Type Area School Age Lead Teacher Device Identifier Shelf Expiration Date Model / Serial / Lot Abbt-Stju 2272 Assurity Mri(Tm) [id number] Implanted: (Quantity not on file) Cardiac Pacemaker [facility] [employer] 2272 ASSURITY MRI(TM) / [id number] / Abbt-Stju Assurity Mri [id number] Implanted: (Quantity not on file) Cardiac Pacemaker [facility] [employer] ASSURITY MRI 2272 / [id number] / Procedures Procedure Name Priority Date/Time Associated Diagnosis Comments CARDIAC DEVICE CHECK- REMOTE- MURJ Routine 03/21/2025 11:26 AM EDT CBC WITH AUTO DIFFERENTIAL Routine 03/08/2025 10:46 AM EDT CBC AND DIFFERENTIAL Routine 03/08/2025 10:46 AM EDT BASIC METABOLIC PANEL Routine 03/08/2025 10:46 AM EDT JONAS URINE CULTURE TUBE Routine 03/08/2025 10:44 AM EDT URINALYSIS WITH REFLEX MICROSCOPIC AND CULTURE Routine 03/08/2025 10:44 AM EDT URINALYSIS WITH REFLEX MICROSCOPIC AND CULTURE Routine 03/08/2025 10:44 AM EDT CULTURE URINE Routine 03/08/2025 10:44 AM EDT OXYGEN THERAPY, ADULT Routine 03/07/2025 8:00 AM EDT OXYGEN THERAPY, ADULT Routine 03/06/2025 8:00 PM EDT OXYGEN THERAPY, ADULT Routine 03/06/2025 8:00 AM EDT CBC WITH AUTO DIFFERENTIAL Routine 03/06/2025 5:20 AM EDT COMPREHENSIVE METABOLIC PANEL Routine 03/06/2025 5:20 AM EDT CBC AND DIFFERENTIAL Routine 03/06/2025 5:20 AM EDT OXYGEN THERAPY, ADULT Routine 03/05/2025 8:00 PM EDT OXYGEN THERAPY, ADULT Routine 03/05/2025 8:00 AM EDT OXYGEN THERAPY, ADULT Routine 03/04/2025 8:00 PM EDT OXYGEN THERAPY, ADULT Routine 03/04/2025 8:00 AM EDT OXYGEN THERAPY, ADULT Routine 03/03/2025 8:00 PM EDT OXYGEN THERAPY, ADULT Routine 03/03/2025 8:01 AM EDT OXYGEN THERAPY, ADULT Routine 03/02/2025 8:00 PM EDT OXYGEN THERAPY, ADULT Routine 03/02/2025 8:02 AM EDT OXYGEN THERAPY, ADULT Routine 03/01/2025 8:00 PM EDT OXYGEN THERAPY, ADULT Routine 03/01/2025 8:28 AM EDT OXYGEN THERAPY, ADULT Routine 03/01/2025 8:28 AM EDT CBC WITH AUTO DIFFERENTIAL Routine 03/01/2025 5:10 AM EDT COMPREHENSIVE METABOLIC PANEL Routine 03/01/2025 5:10 AM EDT CBC AND DIFFERENTIAL Routine 03/01/2025 5:10 AM EDT CARDIAC DEVICE CHECK- REMOTE- MURJ Routine 12/30/2024 5:18 PM EDT CARDIAC DEVICE CHECK- IN CLINIC- MURJ Routine 12/26/2024 9:59 AM EDT Encounter for adjustment or management of cardiac device VAS US DUPLEX CAROTID BILATERAL STAT 12/22/2024 11:19 AM EDT History of syncope Occlusion and stenosis of bilateral carotid arteries LIPID PANEL Routine 12/25/2021 from Last 3 Months or Most Recently Relevant to Health Maintenance Results * Cardiac device check - Remote- MURJ (03/21/2025 11:26 AM EDT) Only the most recent of2 resultswithin the time period is included. 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 Implantable Pulse Generator Type IPG CV DEVICE CHECK Implantable Pulse Generator Model 2272 Assurity MRI(TM) CV DEVICE CHECK Implantable Pulse Generator Serial Number [id number] CV DEVICE CHECK Implantable Pulse Generator Implant Date [id number] CV DEVICE CHECK Battery Remaining Percentage 37.00 CV DEVICE CHECK Battery Remaining Longevity 44.0 CV DEVICE CHECK Battery Voltage 2.960 CV D EVICE CHECK Battery MARKETING WRITER Trigger 2.600 CV DEVICE CHECK Battery Status Middle of Service CV DEVICE CHECK Shemar Statistic RA Percent Paced 68.00 CV DEVICE CHECK Shemar Statistic RV Percent Paced 3.90 CV DEVICE CHECK Atrial Tachy Statistic AT/AF Odin Percent 1.00 CV DEVICE CHECK Lead Channel [...] Lower Rate Limit 60 CV DEVICE CHECK Shemra Setting AT Mode Switch Rate 180 CV [...] Histograms reviewed Additional Notes: Patient admitted to [facility] at time for TAVR Narrative Procedure Note [...] Histograms reviewed Additional Notes: Patient admitted to [facility] at time for TAVR Nessa POSEY CV IMPLANTABLE CARDIAC DEVICE MT OCEDURES Final Result * (ABNORMAL) CBC auto differential (03/08/2025 10:46 AM EDT) Only the most recent of3 resultswithin the time period is included. WBC 21.1(H) 4.8 - 10.8 K/mcL LAB HEMETOLOGY METHOD 03/08/2025 11:00 AM [facility] RBC 3.50(L) 4.50 - 5.50 M/mcL LAB HEMETOLOGY METHOD 03/08/2025 11:00 AM [facility] Hemoglobin 10.9(L) 13.5 - 17.5 g/dL LAB HEMETOLOGY METHOD 03/08/2025 11:00 AM [facility] Hematocrit 33.1(L) 42.0 - 54.0 % LAB HEMETOLOGY METHOD 03/08/2025 11:00 AM [facility] MCV 95.7 79.0 - 98.0 FL LAB HEMETOLOGY METHOD 03/08/2025 11:00 AM [facility] MCH 31.5 27.0 - 32.0 pcg LAB HEMETOLOGY METHOD 03/08/2025 11:00 AM [facility] MCHC 32.9 32.0 - 37.0 g/dL LAB HEMETOLOGY METHOD 03/08/2025 11:00 AM [facility] RDW 13.7 11.0 - 15.0 % LAB HEMETOLOGY METHOD 03/08/2025 11:00 AM [facility] Platelets 251 130 - 400 K/mcL LAB HEMETOLOGY METHOD 03/08/2025 11:00 AM [facility] MPV 9.5 7.0 - 11.0 FL LAB HEMETOLOGY METHOD 03/08/2025 11:00 AM [facility] NRBC 0.0 <1.0 % LAB HEMETOLOGY METHOD 03/08/2025 11:00 AM [facility] NRBC Absolute 0.00 <0.10 K/mcL LAB HEMETOLOGY METHOD 03/08/2025 11:00 AM [facility] Neutrophils Relative 88.4 % LAB HEMETOLOGY METHOD 03/08/2025 11:00 AM [facility] Lymphocytes Relative 3.4 % LAB HEMETOLOGY METHOD 03/08/2025 11:00 AM [facility] Monocytes Relative 6.1 % LAB HEMETOLOGY METHOD 03/08/2025 11:00 AM [facility] Eosinophils Relative 0.9 % LAB HEMETOLOGY METHOD 03/08/2025 11:00 AM [facility] Basophils Relative 0.4 % LAB HEMETOLOGY METHOD 03/08/2025 11:00 AM [facility] Immature Granulocytes Relative 0.8 % LAB HEMETOLOGY METHOD 03/08/2025 11:00 AM [facility] Neutrophils Absolute 18.66(H) 1.50 - 7.00 K/mcL LAB HEMETOLOGY METHOD 03/08/2025 11:00 AM [facility] Lymphocytes Absolute 0.72(L) 1.00 - 5.00 K/mcL LAB HEMETOLOGY METHOD 03/08/2025 11:00 AM [facility] Monocytes Absolute 1.29(H) 0.20 - 1.00 K/mcL LAB HEMETOLOGY METHOD 03/08/2025 11:00 AM [facility] Eosinophils Absolute 0.18 0.00 - 0.50 K/mcL LAB HEMETOLOGY METHOD 03/08/2025 11:00 AM [facility] Basophils Absolute 0.08 0.00 - 0.20 K/mcL LAB HEMETOLOGY METHOD 03/08/2025 11:00 AM [facility] Immature Granulocytes Absolute 0.17(H) 0.00 - 0.03 K/mcL LAB HEMETOLOGY METHOD 03/08/2025 11:00 AM [facility] Blood Venous blood specimen / Unknown Venipuncture / Unknown 03/08/2025 10:46 AM EDT 03/08/2025 10:52 AM EDT us Ada POSEY LAB BLOOD ORDERABLES Final R esult [facility] [address] [place] [address], [place] [phone] * (ABNORMAL) Basic metabolic panel (03/08/2025 10:46 AM EDT) Pathologist [facility] Sodium 138 133 - 145 mmol/L LAB CHEMISTRY METHOD 03/08/2025 11:40 AM [facility] Potassium 4.5 3.5 - 5.5 mmol/L LAB CHEMISTRY METHOD 03/08/2025 11:40 AM [facility] Chloride 105 96 - 110 mmol/L LAB CHEMISTRY METHOD 03/08/2025 11:40 AM [facility] CO2 27 21 - 32 mmol/L LAB CHEMISTRY METHOD 03/08/2025 11:40 AM [facility] Anion Gap 6 3 - 11 LAB CHEMISTRY METHOD 03/08/2025 11:40 AM [facility] Glucose 147(H) 70 - 100 mg/dL LAB CHEMISTRY METHOD 03/08/2025 11:40 AM [facility] BUN 43(H) 5 - 25 mg/dL LAB CHEMISTRY METHOD 03/08/2025 11:40 AM [facility] Creatinine 1.40(H) 0.70 - 1.30 mg/dL LAB CHEMISTRY METHOD 03/08/2025 11:40 AM [facility] eGFR 49(L) >=60 mL/min/1. 73m2 LAB CHEMISTRY METHOD 03/08/2025 11:40 AM [facility] Comment:Calculation based on the Chronic Kidney Disease Epidemiology Collaboration (CKD-EPI) equation refit without adjustment for race. BUN/Creatinine Ratio 30.7 LAB CHEMISTRY METHOD 03/08/2025 11:40 AM [facility] Calcium 8.8 8.5 - 10.5 mg/dL LAB CHEMISTRY METHOD 03/08/2025 11:40 AM [facility] Blood Venous blood specimen / Unknown Venipuncture / Unknown 03/08/2025 10:46 AM EDT 03/08/2025 10:52 AM EDT us Ada POSEY LAB BLOOD ORDERABLES Final R esult [facility] [address] [place] [address], [place] [phone] * (ABNORMAL) Urinalysis with reflex microscopic and culture (03/08/2025 10:44 AM EDT) Specific [place] Urine 1.010 1.003 - 1.030 LAB URINALYSIS - AUTOMATED METHOD 03/08/2025 11:11 AM [facility] pH, Urine 7.0 5.0 - 8.0 pH LAB URINALYSIS - AUTOMATED METHOD 03/08/2025 11:11 AM [facility] Leukocytes, Urine Large(A) Negative LAB URINALYSIS - AUTOMATED METHOD 03/08/2025 11:11 AM [facility] Nitrite, Urine Negative Negative LAB URINALYSIS - AUTOMATED METHOD 03/08/2025 11:11 AM [facility] Protein, Urine Trace <=Trace mg/dL LAB URINALYSIS - AUTOMATED METHOD 03/08/2025 11:11 AM [facility] Glucose, Urine Negative Negative mg/dL LAB URINALYSIS - AUTOMATED METHOD 03/08/2025 11:11 AM [facility] Ketones, Urine Negative Negative mg/dL LAB URINALYSIS - AUTOMATED METHOD 03/08/2025 11:11 AM [facility] Urobilinogen, Urine 0.2 0.2 - 1.0 mg/dL LAB URINALYSIS - AUTOMATED METHOD 03/08/2025 11:11 AM [facility] Bilirubin, Urine Negative Negative LAB URINALYSIS - AUTOMATED METHOD 03/08/2025 11:11 AM [facility] Blood, Urine Large(A) Negative LAB URINALYSIS - AUTOMATED METHOD 03/08/2025 11:11 AM [facility] RBC, Urine 14.7(H) 0 - 4 /HPF LAB URINALYSIS - AUTOMATED METHOD 03/08/2025 11:11 AM [facility] WBC, Urine 335.8(H) 0 - 4 /HPF LAB URINALYSIS - AUTOMATED METHOD 03/08/2025 11:11 AM [facility] Squamous Epithelial, Urine 2 0 - 60 /LPF LAB URINALYSIS - AUTOMATED METHOD 03/08/2025 11:11 AM [facility] Bacteria, Urine Few(A) Negative /HPF LAB URINALYSIS - AUTOMATED METHOD 03/08/2025 11:11 AM [facility] Hyaline Casts, Urine 0.4 0 - 3 /LPF LAB URINALYSIS - AUTOMATED METHOD 03/08/2025 11:11 AM [facility] Urine Urine specimen obtained by clean catch procedure / Unknown Non-blood Collection / Unknown 03/08/2025 10:44 AM EDT 03/08/2025 10:52 AM EDT us Ada POSEY LAB URINE ORDERABLES Final R esult [facility] [address] [place] [address], * Jonas urine culture tube (03/08/2025 10:44 AM EDT) Extra Tube Hold for add-ons. 03/08/2025 12:01 PM EDT [facility] Comment:Auto resulted. Urine Urine specimen obtained by clean catch procedure / Unknown Non-blood Collection / Unknown 03/08/2025 10:44 AM EDT 03/08/2025 10:52 AM EDT us Ada POSEY LAB URINE ORDERABLES Final R esult [facility] [address] [place] [address], [place] [phone] * (ABNORMAL) Culture urine (03/08/2025 10:44 AM EDT) Culture, Urine >=100,000 CFU/mL Serratia marcescens(A) CHUCKIE 03/12/2025 8:47 AM EDT [facility] Comment: This is an edited result. Previous organism was Gram negative bacilli on 03/09/2025 at 0831 EDT. Culture, Urine 50,000-100,000 CFU/mL Enterococcus faecalis(A) CHUCKIE 03/12/2025 8:47 AM EDT [facility] Comment: The organism value for this result has been updated. These results have been appended to the previously preliminary verified report. This is an edited result. Previous organism was Enterococcus species on 03/10/2025 at 1124 EDT. Urine Urine specimen obtained by clean catch procedure / Unknown Non-blood Collection / Unknown 03/08/2025 10:44 AM EDT 03/08/2025 11:11 AM EDT Narrative Organism Antibiotic Method Susceptibility Serratia marcescens Amoxicillin/Clavulanate CHUCKIE 16 ug/ml: Resistant Serratia marcescens Cefoxitin CHUCKIE 8 ug/ml: Resistant Serratia marcescens Ceftazidime CHUCKIE <=0.5 ug/ml: Susceptible Serratia marcescens Ceftriaxone CHUCKIE <=0.25 ug/ml: Susceptible Serratia marcescens Cefepime CHUCKIE <=0.12 ug/ml: Susceptible Serratia marcescens Meropenem CHUCKIE <=0.25 ug/ml: Susceptible Serratia marcescens Amikacin CHUCKIE 4 ug/ml: Susceptible Serratia marcescens Gentamicin CHUCKIE <=1 ug/ml: Susceptible Serratia marcescens Ciprofloxacin CHUCKIE 0.12 ug/ml: Susceptible Serratia marcescens Levofloxacin CHUCKIE <=0.12 ug/ml: Susceptible Serratia marcescens Nitrofurantoin CHUCKIE 256 ug/ml: Resistant Serratia marcescens Trimethoprim/Sulfamethoxazole CHUCKIE <=20 ug/ml: Susceptible Enterococcus faecalis Benzylpenicillin CHUCKIE 4 ug/ml: Susceptible Enterococcus faecalis Ampicillin CHUCKIE <=2 ug/ml: Susceptible Enterococcus faecalis Ciprofloxacin CHUCKIE <=0.5 ug/ml: Susceptible Enterococcus faecalis Levofloxacin CHUCKIE 1 ug/ml: Susceptible Enterococcus faecalis Linezolid CHUCKIE 2 ug/ml: Susceptible Enterococcus faecalis Vancomycin CHUCKIE 1 ug/ml: Susceptible Enterococcus faecalis Tetracycline CHUCKIE >=16 ug/ml: Resistant Enterococcus faecalis Nitrofurantoin CHUCKIE <=16 ug/ml: Susceptible us Ada POSEY LAB MICROBIOLOGY - GENERAL O RDERABLES Final Result [facility] [address] [place] [address], [place] [phone] * (ABNORMAL) Comprehensive metabolic panel (03/06/2025 5:20 AM EDT) Only the most recent of2 resultswithin the time period is included. Sodium 136 133 - 145 mmol/L LAB CHEMISTRY METHOD 03/06/2025 6:08 AM EDT [facility] Potassium 4.8 3.5 - 5.5 mmol/L LAB CHEMISTRY METHOD 03/06/2025 6:08 AM EDT [facility] Chloride 105 96 - 110 mmol/L LAB CHEMISTRY METHOD 03/06/2025 6:08 AM EDT [facility] CO2 26 21 - 32 mmol/L LAB CHEMISTRY METHOD 03/06/2025 6:08 AM EDT [facility] Anion Gap 5 3 - 11 LAB CHEMISTRY METHOD 03/06/2025 6:08 AM EDT [facility] Glucose 78 70 - 100 mg/dL LAB CHEMISTRY METHOD 03/06/2025 6:08 AM [facility] BUN 36(H) 5 - 25 mg/dL LAB CHEMISTRY METHOD 03/06/2025 6:08 AM [facility] Creatinine 1.21 0.70 - 1.30 mg/dL LAB CHEMISTRY METHOD 03/06/2025 6:08 AM [facility] eGFR 59(L) >=60 mL/min/1. 73m2 LAB CHEMISTRY METHOD 03/06/2025 6:08 AM [facility] Comment:Calculation based on the Chronic Kidney Disease Epidemiology Collaboration (CKD-EPI) equation refit without adjustment for race. BUN/Creatinine Ratio 29.8 LAB CHEMISTRY METHOD 03/06/2025 6:08 AM [facility] Calcium 8.5 8.5 - 10.5 mg/dL LAB CHEMISTRY METHOD 03/06/2025 6:08 AM [facility] AST (SGOT) 13 10 - 42 unit/L LAB CHEMISTRY METHOD 03/06/2025 6:08 AM [facility] ALT (SGPT) 20 10 - 60 unit/L LAB CHEMISTRY METHOD 03/06/2025 6:08 AM [facility] Alkaline Phosphatase 65 42 - 121 unit/L LAB CHEMISTRY METHOD 03/06/2025 6:08 AM [facility] Total Protein 5.8(L) 6.0 - 8.0 g/dL LAB CHEMISTRY METHOD 03/06/2025 6:08 AM [facility] Albumin 3.0(L) 3.2 - 5.0 g/dL LAB CHEMISTRY METHOD 03/06/2025 6:08 AM [facility] Total Bilirubin 0.5 0.0 - 1.4 mg/dL LAB CHEMISTRY METHOD 03/06/2025 6:08 AM [facility] Blood Venous blood specimen / Unknown Venipuncture / Unknown 03/06/2025 5:20 AM EDT 03/06/2025 5:36 AM EDT us Zuleima Fiore DO LAB BLOOD ORDERABLES Sobia martinez Result [facility] [address] [place] [address], * CARDIAC DEVICE CHECK- IN CLINIC- [facility] [place] (12/26/2024 9:59 AM EDT) Date Time Interrogation Session [id number] CV DEVICE CHECK Implantable 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 Implantable Pulse Generator Type IPG CV DEVICE CHECK Implantable Pulse Generator Model Assurity MRI 2272 CV DEVICE CHECK Implantable Pulse Generator Serial Number [id number] CV DEVICE CHECK Implantable Pulse Generator Implant Date [id number] CV DEVICE CHECK Battery Voltage 2.950 CV D EVICE CHECK Battery Status Middle of Service CV DEVICE CHECK Shemar Statistic RA Percent Paced 93.00 CV DEVICE CHECK Shemar Statistic RV Percent Paced 3.00 CV DEVICE CHECK Lead Channel Sensing Intrinsic Amplitude 1.800 CV DEVICE CHECK Lead Channel Setting Sensing Sensitivity 0.50 CV DEVICE CHECK Lead Channel Impedance Value 388 CV DEVICE CHECK Lead Channel Pacing Threshold Amplitude 1.000 CV DEVICE CHECK Lead Channel Pacing Threshold Pulse Width 0.5 CV DEVICE CHECK Lead Channel RA Pacing Threshold Date 2024-12-26 CV DEVICE CHECK Lead Channel Setting Pacing Amplitude 1.880 CV DEVICE CHECK Lead Channel Setting Pacing Pulse Width 0.5 CV DEVICE CHECK Lead Channel Sensing Intrinsic Amplitude 10.600 CV DEVICE CHECK Lead Channel Setting Sensing Sensitivity 2.00 CV DEVICE CHECK Lead Channel Impedance Value 463 CV DEVICE CHECK Lead Channel Pacing Threshold Amplitude 1.000 CV DEVICE CHECK Lead Channel Pacing Threshold Pulse Width 0.5 CV DEVICE CHECK Lead Channel RV Pacing Threshold Date 2024-12-26 CV DEVICE CHECK Lead Channel Setting Pacing [...] 150 CV DEVICE CHECK Date of Service 2025-08-25 CV DEVICE CHECK Anatomical Region Laterality Modality Device Interroga tion 12/26/2024 Impressions 12/30/2024 1:04 PM EDT Normal In-Office: No Events * Normal Device Function * Alerts or events: None * Battery: MOS, 3.80 yrs * Sensing, impedance and thresholds reviewed and tested * Presenting Rhythm: AP-HORSE GROOMER 78 bpm * Underlying Rhythm: -VS 45 bpm * Heart Rate Histograms reviewed * Pacing and Detection Parameters were evaluated Narrative Procedure Note Azael Girard MD - 12/30/2024 IMPRESSION: Normal In-Office: No Events * Normal Device Function * Alerts or events: None * Battery: MOS, 3.80 yrs * Sensing, impedance and thresholds reviewed and tested * Presenting Rhythm: AP-HORSE GROOMER 78 bpm * Underlying Rhythm: -VS 45 bpm * Heart Rate Histograms reviewed * Pacing and Detection Parameters were evaluated us Order Referral Cardiovascular CV IMPLANTABLE CAR DIAC DEVICE PROCEDURES Final Result * Vascular US duplex carotid bilateral (12/22/2024 11:19 AM EDT) Left CCA dist christiansen 4 cm/s CV [facility] LAB Left CCA dist sys 55 cm/s [facility] LEFT COMMON CAROTID ARTERY MID D 6 cm/s CV [facility] LAB LEFT COMMON CAROTID ARTERY MID S 71 cm/s CV [facility] LAB Left CCA prox christiansen 6 cm/s CV VAS LAB Left CCA prox sys 76 cm/s CV [facility] LAB LEFT EXTERNAL CAROTID ARTERY D 0 cm/s CV [facility] LAB Left ECA sys 80 cm/s CV V[facility] LAB Left ICA/CCA sys 1.50 no units CV [facility] LAB Left ICA dist christiansen 13 cm/s CV V[facility] LAB Left ICA dist sys 81 cm/s CV VAS LAB Left ICA mid christiansen 12 cm/s CV [facility] LAB Left ICA mid sys 78 cm/s CV [facility] LAB Left ICA prox christiansen 5 cm/s CV V[facility] LAB Left ICA prox sys 46 cm/s CV V[facility] LAB Left vertebral sys 39 cm/s [facility] Right CCA dist christiansen 4 cm/s CV V[facility] LAB Right cca dist sys 56 cm/s [facility] LAB RIGHT COMMON CAROTID ARTERY MID D 4 cm/s CV [facility] LAB RIGHT COMMON CAROTID ARTERY MID S 87 cm/s CV V[facility] LAB Right CCA prox christiansen 5 cm/s CV V[facility] LAB Right CCA prox sys 63 cm/s CV [facility] LAB RIGHT EXTERNAL CAROTID ARTERY D 3 cm/s CV [facility] LAB Right eca sys 62 cm/s CV [facility] LAB Right ICA/CCA sys 1.50 no units CV [facility] LAB Right ICA dist christiansen 11 cm/s CV [facility] LAB Right ICA dist sys 84 cm/s CV V[facility] LAB Right ICA mid christiansen 9 cm/s CV V[facility] LAB Right ICA mid sys 56 cm/s CV V[facility] LAB Right ICA prox christiansen 12 cm/s CV [facility] LAB Right ICA prox sys 58 cm/s [facility] Right vertebral sys 39 cm/s CV [facility] Left Prox Subclavian PSV 139 cm/s [facility] Right Prox Subclavian PSV 88 cm/s [facility] Right arm BP 125 mmHg [facility] Left arm BP 125 mmHg CV [facility] LAB Anatomical Region Laterality Modality Vascular, Abdomen Ultrasound Narrative 12/24/2024 2:11 PM EDT RIGHT. 1. There is minimal atherosclerotic plaque in the right carotid system as noted above. 2. There is a < 50% stenosis in the right internal carotid artery based on Doppler velocity. 3. The subclavian artery has normal Doppler flow velocity. 4. The vertebral artery has normal Doppler flow patterns with antegrade flow. LEFT. 1. There is minimal atherosclerotic plaque in the left carotid system as noted above. 2. There is a < 50% stenosis in the left internal carotid artery based on Doppler velocity. 3. The subclavian artery has normal Doppler flow velocity. 4. The vertebral artery has normal Doppler flow patterns with antegrade flow. Interpretation was done according to the [place] Symptomatic Carotid Endarterectomy Trial (NASCET) criteria and the Consensus Panel Grayscale and Doppler Ultrasound criteria for diagnosis of internal carotid artery stenosis. Please note that there are no clear criteria validated for the common carotid artery stenosis. Right Carotid The CCA has no significant plaque. The proximal ICA has minimal plaque. The ECA has minimal plaque. Right BP= 125/41 Vertebral flow is antegrade. Left Carotid The CCA has no significant plaque. The proximal ICA has mild heterogeneous plaque. The ECA has minimal plaque. Left BP= 125/44 Vertebral flow is antegrade. Keyseating Machine Set Up Operator Details A jonas scale, color and doppler analysis ultrasound was performed. During the study longitudinal and transverse views were obtained. Pulsed wave doppler was performed. us Lucas Kraus MD CV VASCULAR PROCEDURES Final Res ult * Lipid panel (12/25/2021) LDL/HDL Ratio 2 0 - 4 Triglycerides 72 0 - 150 mg/dL Cholesterol 126 0 - 200 mg/dL HDL 64 >=40 mg/dL LDL Cholesterol 48 0 - 100 mg/dL Blood Venous blood specimen / Unknown Historical Provider LAB BLOOD ORDERABLES Sobia l Result from Last 3 Months or Most Recently Relevant to Health Maintenance Insurance MEDICARE [facility] Advance Directives Documents on File Type Date Recorded Patient Manager Laundry Expl anation Health Care Decision (hx) 10/12/2019 [...] Care Decision (hx) 10/12/2019 AD ROMERO DIRECTIVE Advance Directives and Living Will 02/28/2025 2:12 PM HEALTH CARE PROXY * Full Code - Default (Latest Code Status on File) Date Activated Date Inactivated Comments 02/28/2025 4:44 PM 03/10/2025 4:12 PM This is orde r is used when code status has not been discussed with the patient, or code status is otherwise unknown/unconfirmed To update the patient's code status, place a code status order. Do not modify or discontinue any currently active code status orders. Care Teams Pelletizer Relationship Specialty Start Date End Date Brain Mcgarry MD [address] [place] [id number] PCP - General Internal Medicine 08/30/24
== END 2025-03-23 10:06 | disposition home or self-care (01) ==
LOC: HO.HKAS 09:29
PROVIDERS: PCP Internal Medicine; Visit Provider Internal Medicine Nephrology
DX: N18.31 Chronic kidney disease, stage 3a (principal); R80.8 Other proteinuria; N25.81 Secondary hyperparathyroidism of renal origin; I10 Essential (primary) hypertension
CPT/HCPCS: 99214